=== PATIENT | female | born 2000 | race Caucasian/White ===

== ENCOUNTER → 2020-05-31 | Outpatient (CLI) | payer OTHER ==
[~2020-05-31] MED LIST: AUGMENTIN 875-1 EACH PO
== END ==
LOC: LAB 10:24
PROVIDERS: ATTEND Family Medicine
DX: J02.9 Acute pharyngitis, unspecified (principal); R05 Cough; R51.9 Headache, unspecified; M79.10 Myalgia, unspecified site; Z20.828 Contact with and (suspected) exposure to other viral communicable diseases

== ENCOUNTER 2021-02-12 10:03 | Emergency (ER) | payer OTHER ==
[~2021-02-12] VITALS: Ht 165.1 cm; Wt 131.5 kg
[2021-02-12 10:08] VITALS: BP 125/80
[2021-02-12] MEDS ORDERED: ADDERALL 10 MG10 MG PO (10:11)
== END 2021-02-12 11:03 | disposition home or self-care (01) ==
LOC: ER 10:03
PROVIDERS: Emergency Medicine
DX: U07.1 COVID-19 (principal); Z79.899 Other long term (current) drug therapy

== ENCOUNTER → 2021-03-07 | Outpatient (CLI) | payer OTHER ==
[~2021-03-07] MED LIST changes: +ADDERALL 10 MG10 MG PO
== END ==
LOC: CAT 14:59
PROVIDERS: ATTEND Otolaryngology
DX: H90.8 Mixed conductive and sensorineural hearing loss, unspecified (principal)

== ENCOUNTER 2021-04-22 11:08 | Emergency (ER) | payer OTHER ==
[~2021-04-22] VITALS: Ht 165.1 cm; Wt 124.7 kg
[2021-04-22 12:06] VITALS: BP 149/93
== END 2021-04-22 12:17 | disposition home or self-care (01) ==
LOC: ER 11:08
DX: S06.0X0A Concussion without loss of consciousness, initial encounter (principal); S00.03XA Contusion of scalp, initial encounter; Z79.899 Other long term (current) drug therapy; W18.30XA Fall on same level, unspecified, initial encounter; Y93.89 Activity, other specified; Y92.89 Other specified places as the place of occurrence of the external cause; Y99.8 Other external cause status